=== PATIENT | female | born 1980 | race Caucasian/White ===

== ENCOUNTER 2022-11-13 19:38 | Emergency (ER) | payer MEDICAID ==
[2022-11-13 19:59] LABS: BASOPHILS % (AUTO) 0.2 %; EOSINOPHILS % (AUTO) 0.2 %; HCT - HEMATOCRIT 45.6 % (37.0-47.0); HGB - HEMOGLOBIN 15.1 g/dL (12.0-16.0); LYMPHOCYTES # (AUTO) 2.5 10^3/uL (1.5-3.5); LYMPHOCYTES % (AUTO) 15.6 %; MEAN CORPUSCULAR HEMOGLOBIN 28.9 pg (27.0-31.0); MEAN CORPUSCULAR HGB CONC 33.1 g/dL (32.0-36.0); MEAN CORPUSCULAR VOLUME 87.4 fL (81.0-99.0); MEAN PLATELET VOLUME 10.7 fL (7.9-10.8); MONOCYTES # (AUTO) 1.3 10^3/uL (0.0-1.0); MONOCYTES % (AUTO) 7.8 %; NEUTROPHILS # (AUTO) 12.3 10^3/uL (1.5-6.6); NEUTROPHILS % (AUTO) 75.7 %; PLT - PLATELET COUNT 343 10^3/uL (130-450); RED BLOOD COUNT 5.22 10^6/uL (4.20-5.40); RED CELL DISTRIBUTION WIDTH 11.9 % (12.0-15.0); WHITE BLOOD COUNT 16.3 x10^3/uL (4.8-10.8)
[2022-11-13] MEDS ORDERED: SODIUM CHLORIDE 0.9% 1,000 ML IV STA (20:02)
[2022-11-13] MEDS ORDERED: ONDANSETRON 4 MG/2 ML VIAL IVP STA (20:02)
--- NOTE | 2022-11-13 20:03 | ED Physician Documentation ---
History of Present Illness - Stated complaint Stated Complaint: VOMITTING - Chief complaint Chief Complaint: Abd Pain - History obtained from History obtained from: Patient - Additonal information Additional information: 42-year-old female with no significant past medical history presents with nausea and vomiting. Symptoms started Last night after going out with friends. She states she in a number of friends went out to dinner, they did eat more fried food than she typically eats, and prior to that they Visited [place] in [place] and she had some street food including report and fish. Other people ate the same thing however and did not have any symptoms. She did have a couple of alcoholic drinks last night but was not intoxicated. She does not drink often but states this does not feel like a hangover. She has had fairly persistent vomiting all day. She has no real abdominal pain though she is somewhat sore after vomiting. She has also been extremely nauseous. She has not had any diarrhea, no fever or chills, no chest pain or difficulty breathing, no dysuria urgency or frequency. She has a history of appendectomy, has never had issues with gallstones or biliary colic. She has no history of pancreatitis and does not drink on a regular basis. She is taking doxycycline for a skin issue But has been on this for several weeks. No other new medications. She later s tated that one of the friends that she went out with mention that their entire family was dealing with nausea and vomiting and suspected viral illness and the patient did share drinks with this person. Review of Systems Constitutional: reports: Reviewed and negative Throat: reports: Reviewed and negative Cardiac: reports: Reviewed and negative Respiratory: reports: Reviewed and negative GI: reports: Nausea, Vomiting. denies: Abdominal Pain, Abdominal Swelling, Constipation, Diarrhea, Hematemesis, Bloody / black stool : reports: Reviewed and negative Skin: reports: Reviewed and negative Musculoskeletal: reports: Reviewed and negative Neurologic: reports: Reviewed and negative Psychiatric: reports: Reviewed and negative Endocrine: reports: Reviewed and negative PD PAST MEDICAL HISTORY - Past Medical History Past Medical History: No - Past Surgical History Past Surgical History: Yes General: Appendectomy - Present Medications Home Medications: Ambulatory Orders Medication Instructions Recorded Confirmed Ondansetron Odt [Zofran] 4 mg TL Q6H PRN #10 tablet 11/13/22 - Allergies Allergies/Adverse Reactions: Allergies Allergy/AdvReac Type Severity Reaction Status Date / Time sulfamethoxazole Allergy Hives Verified 11/13/22 19:42 [From Bactrim] trimethoprim [From Bactrim] Allergy Hives Verified 11/13/22 19:42 PD ED PE NORMAL - Vitals Vital signs reviewed: Yes - General General: Alert and oriented X 3, No acute distress, Well developed/nourished - HEENT HEENT: Atraumatic, Pharynx benign - Neck Neck: Supple, no meningeal sign, No JVD - Cardiac Cardiac: RRR, No murmur - Respiratory Respiratory: No respiratory distress, Clear bilaterally - Abdomen Abdomen: Normal bowel sounds, Soft, Non tender, Non distended, No organomegaly - Back Back: No CVA TTP, No spinal TTP - Derm Derm: Normal color, Warm and dry - Neuro Neuro: Alert and oriented X 3 Eye Opening: Spontaneous Motor: Obeys Commands Verbal: Oriented GCS Score: 15 - Psych Psych: Normal mood, Normal affect Results - Vitals Vitals: Vital Signs - 24 hr 11/13/22 19:42 Temperature 36.5 C Heart Rate 90 Respiratory 16 Rate Blood Pressure 137/80 H O2 Saturation 98 Oxygen O2 Source Room air - Labs Labs: Laboratory Tests 11/13/22 11/13/22 11/13/22 19:52 19:52 20:49 WBC 16.3 H RBC 5.22 Hgb 15.1 Hct 45.6 MCV 87.4 MCH 28.9 MCHC 33.1 RDW 11.9 L Plt Count 343 MPV 10.7 Neut # (Auto) 12.3 H Lymph # (Auto) 2.5 Mayes # (Auto) 1.3 H Eos # (Auto) 0.0 Baso # (Auto) 0.0 Absolute Nucleated RBC 0.00 Nucleated RBC % 0.0 Sodium 140 Potassium 3.9 Chloride 106 Carbon Dioxide 26 Anion Gap 8.0 BUN 9 Creatinine 0.6 Estimated GFR (MDRD) 109 Glucose 129 H Calcium 9.3 Total Bilirubin 0.9 AST 26 ALT 39 Alkaline Phosphatase 87 Total Protein 8.4 H Albumin 4.2 Globulin 4.2 Albumin/Globulin Ratio 1.0 Lipase 187 H Urine Color YELLOW Urine Clarity HAZY Urine pH 7.0 Ur Specific [place] 1.020 Urine Protein TRACE Urine Glucose (UA) NEGATIVE Urine Ketones 40 H Urine Occult Blood NEGATIVE Urine Nitrite NEGATIVE Urine Bilirubin NEGATIVE Urine Urobilinogen 0.2 (NORMAL) Ur Leukocyte Esterase TRACE H Urine RBC 0-5 Urine WBC >25 H Ur Squamous Epith Cells MOD Squamous H Urine Bacteria Few Urine Yeast PRESENT Ur Microscopic Review INDICATED Urine Culture Comments NOT INDICATED PD Medical Decision Making - ED course Complexity details: reviewed results, re-evaluated patient, considered differential, d/w patient ED course: 42-year-old female presented after developing nausea and vomiting since last night. On arrival here, patient is well-appearing, nontoxic with stable vital signs. She has no abdominal pain or peritoneal signs on physical exam therefore low suspicion for cholecystitis or pancreatitis. The patient is status post appendectomy. She has no bowel symptoms. Labs were obtained which showed a mild leukocytosis, likely stress-induced from vomiting, her CBC was otherwise stable, CMP significant only for a mild elevation in the lipase at 187. Clinically however the patient does not have pancreatitis that she has no pain over the upper part of the abdomen and I think this is likely due to her vomiting. We gave her a liter of IV fluids as well as Zofran with improvement in her vomiting, she has not vomited here, but she continued to have nausea. Therefore I proceeded with Phenergan 12.5 mg IV and patient noted substantial i mprovement with that. She has not vomited since she has been here and is able to tolerate a small amount of p.o. liquid. I gave her famotidine IV as well and a dose of Maalox with lidocaine due to irritation in her throat from vomiting. The patient is feeling some improvement and therefore I do think is stable for discharge home at this time. I have advised her to adhere to a clear liquid diet for the next 1 to 2 days and advance slowly as tolerated to a bland diet, avoiding meat, high-fat foods or fried foods for the next several days to a week. 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 She was advised on return precautions if new or worsening symptoms Including fever, abdominal pain, or if she continued to have nausea and vomiting after the next 48 hours or so. Departure - Departure Disposition: 01 Home, Self Care Clinical Impression: Vomiting Qualifiers: Vomiting type: unspecified Nausea presence: with nausea Qualified Code(s): R11.2 - Nausea with vomiting, unspecified Condition: Good Instructions: ED Nausea Vomiting Prescriptions: Ondansetron Odt [Zofran] 4 mg TL Q6H PRN #10 tablet PRN Reason: Nausea / Vomiting Comments: Your symptoms are likely related to a viral gastroenteritis. You do have a mild elevation in your lipase which is probably from vomiting, and you otherwise do not have symptoms worrisome for pancreatitis. Please stick to a clear liquid diet for the next 1-2 days then advance slowly as tolerated. Avoid any high fat foods, meat, fried foods, or other heavy foods for the next week. Use nausea tablets as needed. If you develop fever, pain, or symptoms do not improve in the next 3-4 days, see PCP or return to the ER.
[2022-11-13 20:10] LABS: ALBUMIN 4.2 g/dL (3.2-5.5); BILIRUBIN,TOTAL 0.9 mg/dL (0.2-1.0); CALCIUM 9.3 mg/dL (8.5-10.3); CREATININE 0.6 mg/dL (0.4-1.0); POTASSIUM 3.9 mmol/L (3.5-5.0); TOTAL PROTEIN 8.4 g/dL (6.7-8.2)
[2022-11-13] MEDS ORDERED: PROMETHAZINE INJ 12.5 MG in SODIUM CHLORIDE 0.9% 50 ML IV STA (20:30)
[2022-11-13] MEDS ORDERED: FAMOTIDINE 20 MG/2 ML VIAL IVP STA (20:30)
[2022-11-13 20:58] LABS: BILIRUBIN,URINE NEGATIVE (NEGATIVE); GLUCOSE, URINE (UA) NEGATIVE (NEGATIVE); KETONES,URINE (UA) 40 mg/dL (NEGATIVE); LEUKOCYTE ESTERASE, URINE TRACE (NEGATIVE); NITRITE,URINE NEGATIVE (NEGATIVE); OCCULT BLOOD,URINE NEGATIVE (NEGATIVE); PROTEIN,URINE TRACE mg/dL (NEGATIVE); UROBILINOGEN,URINE 0.2 (NORMAL) E.U./dL (NORMAL)
[2022-11-13 20:59] LABS: CLARITY,URINE HAZY (CLEAR)
[2022-11-13] MEDS ORDERED: PROMETHAZINE 25 MG/1 ML VIAL ONE (21:06)
[2022-11-13] MEDS ORDERED: ONDANSETRON ODT 4 MG Prepack 2 TL PRN (21:07)
[2022-11-13 21:09] LABS: BACTERIA,URINE Few /HPF (None Seen); RBC,URINE 0-5 /HPF (0-5); SQUAMOUS EPITHELIAL CELL,UR MOD Squamous (<= Few); WBC,URINE >25 /HPF (0-5)
[2022-11-13 21:10] LABS: YEAST,URINE PRESENT
[2022-11-13] MEDS ORDERED: MAG HYDROX/AL HYDROX/SIMETH 30 ML UDC PO STA (21:29)
[2022-11-13] MEDS ORDERED: LIDOCAINE VISCOUS 2% 15 ML ORAL SYRINGE MM STA (21:29)
[2022-11-13 21:55] VITALS: BP 127/80
== END 2022-11-13 22:00 | disposition home or self-care (01) ==
LOC: ED 19:38
DX: R11.2 Nausea with vomiting, unspecified (principal)
CPT/HCPCS: 36415; 80053; 81001; 83690; 85025; 96365; 96375; 99283; 99284; A9270; J7040; 81003; 87086

== ENCOUNTER 2023-04-12 08:00 | Outpatient (CLI) | payer MEDICAID ==
--- NOTE | 2023-04-13 11:32 | XRAY Report ---
PROCEDURE: Foot 2 View RT INDICATIONS: RIGHT TOE PAIN TECHNIQUE: 2 views of the foot were acquired. COMPARISON: None. FINDINGS: Bones: Comminuted and mildly displaced fracture of the proximal first phalanx midshaft.. Mild hallux valgus configuration of the first MTP with medial bunion formation. No suspicious bony lesions. Soft tissues: No suspicious soft tissue calcifications or masses. IMPRESSION: Comminuted and mildly displaced fracture of the first proximal phalanx. Reviewed by: Joe Porter MD on 04/13/2023 11:31 AM PST Approved by: Joe Porter MD on 04/13/2023 11:31 AM PST Station ID: [id number]
== END 2023-04-12 23:59 | disposition home or self-care (01) ==
LOC: DI.S 08:00
PROVIDERS: ATTEND Internal Medicine
DX: S92.411A Displaced fracture of proximal phalanx of right great toe, initial encounter for closed fracture (principal)